=== PATIENT | female | born 1950 | race Caucasian/White ===

== ENCOUNTER 2021-05-13 01:58 | Emergency (ER) | payer MEDICARE, OTHER ==
[~2021-05-13] VITALS: Ht 165.1 cm; Wt 77.3 kg
--- NOTE | 2021-05-13 02:46 | PHYS DOC ---
General Adult EDM: Chief Complaint: SHORTNESS OF BREATH HPI: HPI: Patient is a 71 year old patient is here for shortness of breath and dry cough which began yesterday. She denies chest pain. She denies dizziness, diaphoresis. She denies sputum production, denies hemoptysis. She has chronic lower extremity swelling, which is unchanged. She has chronic osteoarthritis of both knees, which is unchanged. No calf pain. Denies syncope. Denies dyspnea exertion. 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 She neglected to tell me initially, but she has been having subjective chills and fevers at home. She is febrile on arrival on initial triage, but I personally rechecked her temperature, orally, later, and she is afebrile at 98.3 degrees. She took Tylenol around 8 PM last night. No antipyretics since that time. She denies any active chills or subjective sense of fevers or body aches at present. She is worried about she and her partner being positive for Covid (BERT SAUNDERS DO) Review of Systems: Review of Systems: Constitutional: Fevers and chills. Eyes: Denies change in visual acuity. [] HENT: Denies nasal congestion or sore throat. [] Respiratory: Dry cough. Dyspnea. Cardiovascular: Denies chest pain. Chronic bilateral lower extremity swelling, no peripheral edema. GI: Denies abdominal pain, nausea, vomiting, diarrhea. : Denies urinary symptoms. Musculoskeletal: Chronic osteoarthritis of both knees, unchanged. Integument: Denies rash. [] Neurologic: Denies headache, focal weakness or sensory changes. [] Endocrine: Denies polyuria or polydipsia. [] Lymphatic: Denies swollen glands. [] Psychiatric: Denies depression or anxiety. [] (BERT SAUNDERS DO) Heart Score: C/O Chest Pain: No Risk Factors: Risk Factors: DM, Current or recent (<one month) smoker, HTN, HLP, family history of CAD, obesity. Risk Scores: Score 0 - 3: 2.5% MACE over next 6 weeks - Discharge Home Score 4 - 6: 20.3% MACE over next 6 weeks - Admit for Clinical Observation Score 7 - 10: 72.7% MACE over next 6 weeks - Early Invasive Strategies (BERT SAUNDERS DO) Physical Exam: PE: Constitutional: Well developed, well nourished, no acute distress, non-toxic appearance. [] HENT: Normocephalic, atraumatic, oropharynx is patent and clear, mucous membranes are moist. Eyes: Sclera are clear and anicteric Neck: Normal range of motion, no tenderness, supple, no stridor. Trachea is midline. No meningismus. Cardiovascular:Heart rate regular rhythm, was 2 radial and +2 posterior tibial pulses bilaterally. Lungs & Thorax: Bilateral breath sounds clear to auscultation, no tachypnea, no rales, rhonchi or wheezes. No stridor. Abdomen: Abdomen soft, obese, nondistended, nontender to palpation, no CVA tenderness. Skin: Warm, dry, no erythema, no rash. [] Back: No tenderness, no CVA tenderness. [] Extremities: No tenderness, no cyanosis, no clubbing, ROM intact, no pitting edema. Trace bilateral, symmetric lower extremity swelling, no calf tenderness. Neurologic: Alert and oriented X 3, normal motor function, normal sensory function, no focal deficits noted. [] Psychologic: Affect normal, judgement normal, mood normal. She is pleasant cooperative. (BERT SAUNDERS DO) EKG: EKG: EKG is interpreted at 0313 Rhythm is sinus Rate is 81 bpm Hickman is normal Low voltage No STEMI (BERT SAUNDERS DO) Radiology/Procedures: Radiology/Procedures: IMAGING REPORT Signed PATIENT: BREE DEWEY ACCOUNT: [id number] : 1950 LOCATION: ER AGE: 71 SEX: F EXAM STATUS: PRE ER ORD. PHYSICIAN: BERT SAUNDERS DO REASON: cough, dyspnea PROCEDURE: PORTABLE CHEST 1V XR CHEST 1V INDICATION: cough, dyspnea COMPARISON STUDY: None. FINDINGS: Left pectoral dual chamber transvenous ICD/pacemaker. Lungs: Normal lung volume. No pulmonary mass or consolidation. The tracheobronchial tree and hilar structures are normal. Pleura: No pleural effusion or pneumothorax. Heart and Mediastinum: The cardiomediastinal silhouette is normal. The great vessels of the thorax are normal. IMPRESSION: No acute cardiopulmonary process. Electronically signed by: Ivory Holt MD (05/13/2021 3:20 AM) [facility] DICTATED and SIGNED BY: IVORY HOLT MD DATE: 05/13/21 [id number] IMAGING REPORT Signed PATIENT: BREE EDWEY ACCOUNT: [id number] : 1950 LOCATION: ER AGE: 71 SEX: F EXAM STATUS: REG ER ORD. PHYSICIAN: BERT SAUNDERS DO REASON: dyspnea, elevated D dimer;OMNI 350,100ML-NO IV ACCESS@5:30 PROCEDURE: CT ANGIOGRAPHY CHEST CTA CHEST INDICATION: dyspnea, elevated D dimer Comparison: Chest radiograph 05/13/2021. TECHNIQUE: Following the uneventful administration of intravenous contrast, 100 cc Omnipaque 350, axial CT sections were obtained through the lungs and upper abdomen. Multiplanar reconstructions and MIP images were obtained. PQRS compliance statement: One or more of the following individualized dose reduction techniques were utilized for this examination: 1. Automated exposure control 2. Adjustment of the mA and/or kV according to patient size 3. Use of iterative reconstruction technique FINDINGS: Pulmonary arteries: No evidence of pulmonary thrombolic disease Lungs and Airways: No pulmonary mass or consolidation. No abnormality of the central airways. Pleura: The pleural spaces are normal. Heart and Mediastinum: The visualized thyroid is normal in size and attenuation. No axillary or supraclavicular lymphadenopathy. No mediastinal, hilar or retrocrural lymphadenopathy. Normal cardiac size. Coronary artery athe rosclerotic disease. Normal caliber thoracic aorta. Abdomen: Limited images through the upper abdomen show no abnormality of the visualized organs. Bones and Soft Tissues: Degenerative changes of the spine. IMPRESSION: 1. No evidence of pulmonary thromboembolic disease. 2. No pulmonary mass or consolidation Electronically signed by: Ivory Holt MD (05/13/2021 6:48 AM) [facility] DICTATED and SIGNED BY: IVORY HOLT MD DATE: 05/13/21 [id number] (BERT SAUNDERS DO) Course & Med Decision Making: Course & Med Decision Making Pertinent Labs and Imaging studies reviewed. (See chart for details) The patient is given IV and p.o. potassium replacement. She is given p.o. magnesium replacement. IV fluid bolus given with potassium. Chest x-ray and CT angiogram are negative for any acute process, no PE. She is resting comfortably. Again I personally checked her oral temperature, noted at 98.3. She is not tachycardic. She manifests no evidence of hypoxia or respiratory distress. She is not taking any potassium wasting medications. She reports that she has been eating and drinking well. She not aware of any previous history of hypokalemia. She has not yet provided a urine sample. I do recommend a UA with culture, given that she had a fever. However she continues to adamantly deny any abdominal pain or urinary symptoms. She does have a dry cough. Symptoms just began yesterday, rapid antigen test is negative, but I did express that she needs to go home, self isolate and await her Covid PCR test. I told her that she may require repeat testing in the next 3 to 5 days, if symptoms should persist. Home care instructions for fever are given. She is an appointment later today with her primary care physician, I recommend she discuss this further at that time. Her urinalysis has been sent to the lab but is taking quite a while to result, this the result of that is pending. I have also ordered a repeat potassium level to assess if there is improvement after IV and oral potassium replacement here. I am transferring care to Dr. Lewis to follow-up on urinalysis results. He will also follow-up on repeat potassium level. Patient is aware of this, she is comfortable with the plan for discharge home pending these result. (BERT SAUNDERS DO) Course & Med Decision Making I assumed care of patient at tail end of off going physician to shift. I reviewed entirety of ER work-up and patient pending urine prior to discharge that was ultimately negative. Packet and plan of care already discussed between patient and off [facility] physician (GEOFFREY LEWIS DO) Kelly Disclaimer: Kelly Disclaimer: This electronic medical record was generated, in whole or in part, using a voice recognition dictation system. (BERT SAUNDERS DO) Departure Departure Impression: Primary Impression: Dyspnea Additional Impressions: History of fever Cough Hypokalemia Hypomagnesemia Disposition: HOME / SELF CARE / HOMELESS Condition: STABLE Patient Instructions: Fever of Unknown Origin, Fever, Adult, Hypokalemia, Shortness of Breath Additional Instructions: Return to the ER for chest pain, more severe shortness of breath, coughing up blood, weakness, abdominal pain, uncontrolled vomiting, if you are acutely injured or for any other concerns. Take the medications as directed. Stay well-hydrated. You may take [id number] Tylenol or ibuprofen for fever. You may wish to have a repeat Covid swab in the next 3 to 5 days, should your fe haley and cough symptoms persist, as you may still have Covid infection, and initial rapid antigen testing is less accurate early in the course of illness. The same would apply for any close household contacts. Regarding your low potassium level, take the medications as directed, follow-up with your doctor for further evaluation treatment and monitoring. Scripts Magnesium Oxide (MAGNESIUM OXIDE) 400 Mg Tablet 1 TAB PO DAILY, #30 TAB 0 Refills Prov: BERT SAUNDERS DO 05/13/21 Potassium Chloride (POTASSIUM CHLORIDE ) 20 Meq Tablet.er 20 MEQ PO DAILY for SUPPLEMENT, #30 TAB.SR Prov: BERT SAUNDERS DO 05/13/21 BERT SAUNDERS DO May 13, 2021 02:46 GEOFFREY LEWIS DO May 13, 2021 10:50
--- NOTE | 2021-05-13 03:14 | EKG ---
[facility] [address] [place] [address] Test Date: 2021-05-13 Test Time: 03:12:02 Pat Name: BREE DEWEY Department: Room: Gender: F Director College: : 1950 Requested By: BERT SAUNDERS Order Number: [id number] Reading MD: Measurements Intervals [place] Rate: 81 P: 90 MO: 192 QRS: 15 QRSD: 86 T: -72 QT: 366 QTc: 426 Interpretive Statements SINUS RHYTHM LOW LIMB LEAD VOLTAGE QRS(T) CONTOUR ABNORMALITY CONSIDER ANTEROSEPTAL MYOCARDIAL DAMAGE T ABNORMALITY IN ANTEROLATERAL LEADS INFEROLATERAL LEADS ABNORMAL ECG RI6.02 No previous ECG available for comparison
--- NOTE | 2021-05-13 03:22 | RAD ---
XR CHEST 1V INDICATION: cough, dyspnea COMPARISON STUDY: None. FINDINGS: Left pectoral dual chamber transvenous ICD/pacemaker. Lungs: Normal lung volume. No pulmonary mass or consolidation. The tracheobronchial tree and hilar st ructures are normal. Pleura: No pleural effusion or pneumothorax. Heart and Mediastinum: The cardiomediastinal silhouette is normal. The great vessels of the thorax ar e normal. IMPRESSION: No acute cardiopulmonary process. Electronically signed by: Brant Holt MD (05/13/2021 3:20 AM) [facility]
[2021-05-13 04:02] LABS: BASO % 0 % (0-3); EOS % 0 % (0-3); HEMATOCRIT 31.9 % (36.0-47.0); HEMOGLOBIN 10.6 g/dL (12.0-15.5); LYMPH # 0.9 x10^3/uL (1.0-4.8); LYMPH % 4 % (24-48); MEAN CORPUSCULAR HEMOGLOBIN 30 pg (25-35); MEAN CORPUSCULAR HGB CONC 33 g/dL (31-37); MEAN CORPUSCULAR VOLUME 90 fL (79-100); MONO # 0.6 x10^3/uL (0.0-1.1); MONO % 3 % (0-9); NEUT # 18.5 x10^3/uL (1.8-7.7); NEUT % 92 % (31-73); PLATELET COUNT 261 x10^3/uL (140-400); RED BLOOD COUNT 3.56 x10^6/uL (3.50-5.40); RED CELL DISTRIBUTION WIDTH 12.5 % (11.5-14.5); WHITE BLOOD COUNT 20.1 x10^3/uL (4.0-11.0)
[2021-05-13 04:15] LABS: INFLUENZA A PATIENT NEGATIVE (NEGATIVE); INFLUENZA B PATIENT NEGATIVE (NEGATIVE)
[2021-05-13 04:19] LABS: ALBUMIN 2.9 g/dL (3.4-5.0); ALBUMIN/GLOBULIN RATIO 0.6 (1.0-1.7); CALCIUM 8.7 mg/dL (8.5-10.1); CREATININE 0.8 mg/dL (0.6-1.0); GFR 70.7; TOTAL BILIRUBIN 0.7 mg/dL (0.2-1.0); TOTAL PROTEIN 7.4 g/dL (6.4-8.2)
[2021-05-13 04:24] LABS: POTASSIUM 2.7 mmol/L (3.5-5.1)
[2021-05-13] MEDS ORDERED: POTASSIUM CHLORIDE 20MEQ 100 ML IV ONE (04:30)
[2021-05-13] MEDS ORDERED: POTASSIUM CHLORIDE 20 MEQ TABLET.ER. PO ONE (04:30)
[2021-05-13] MEDS ORDERED: IV NORMAL SALINE 500ML BAG 500 ML IV ONE (04:45)
[2021-05-13] MEDS ORDERED: MAGNESIUM OXIDE 400 MG TABLET PO ONE (04:45)
[2021-05-13 04:48] LABS: % BANDS 9 % (0-9); % EOS 1 % (0-5); % LYMPHS 5 % (24-48); % METAS 1 % (0-0); % MONOS 3 % (0-10); % SEGS 81 % (35-66); PLT ESTIMATE ADEQUATE (ADEQUATE); TOXIC GRANULATION SLIGHT
[2021-05-13] MEDS: POTASSIUM CHLORIDE 10MEQ 100 ML IV SCH ×2 (05:07→06:19)
[2021-05-13] MEDS ORDERED: CONTRAST GIVEN. MC PRN (05:15)
[2021-05-13] MEDS ORDERED: IOHEXOL 350 MG/ML 100 ML VIAL. IV ONE (05:15)
--- NOTE | 2021-05-13 06:51 | RAD ---
CTA CHEST INDICATION: dyspnea, elevated D dimer Comparison: Chest radiograph 05/13/2021. TECHNIQUE: Following the uneventful administration of intravenous contrast, 100 cc Omnipaque 350, axi al CT sections were obtained through the lungs and upper abdomen. Multiplanar reconstructions and MIP images were obtained. PQRS compliance statement: One or more of the following individualized dose reduction techniques were utilized for this examinat ion: 1. Automated exposure control 2. Adjustment of the mA and/or kV according to patient size 3. Use of iterative reconstruction technique FINDINGS: Pulmonary arteries: No evidence of pulmonary thrombolic disease Lungs and Airways: No pulmonary mass or consolidation. No abnormality of the central airways. Pleura: The pleural spaces are normal. Heart and Mediastinum: The visualized thyroid is normal in size and attenuation. No axillary or supra clavicular lymphadenopathy. No mediastinal, hilar or retrocrural lymphadenopathy. Normal cardiac size . Coronary artery atherosclerotic disease. Normal caliber thoracic aorta. Abdomen: Limited images through the upper abdomen show no abnormality of the visualized organs. Bones and Soft Tissues: Degenerative changes of the spine. IMPRESSION: 1. No evidence of pulmonary thromboembolic disease. 2. No pulmonary mass or consolidation Electronically signed by: Brant Holt MD (05/13/2021 6:48 AM) [facility]
[2021-05-13] MEDS ORDERED: POTA20TA4 PO (07:42)
[2021-05-13 08:04] LABS: BILIRUBIN,URINE NEGATIVE (NEG); CLARITY,URINE CLEAR; COLOR,URINE YELLOW; NITRITE,URINE NEGATIVE (NEG); PH,URINE 6.5 (<5.0-8.0); PROTEIN,URINE NEGATIVE (NEG-TRACE); UROBILINOGEN,URINE 0.2 mg/dL (0.2 mg/dL)
[2021-05-13] MEDS ORDERED: MAGN400T48 PO (08:10)
[2021-05-13 08:40] LABS: BACTERIA,URINE 0 /HPF (0-FEW); RBC,URINE 0 /HPF (0-2); WBC,URINE 0 /HPF (0-4)
[2021-05-13 09:00] VITALS: BP 143/67
--- NOTE | 2021-05-13 16:05 | NUR ---
IP: Informed pt of negative covid test. Pt verbalized understanding.
== END 2021-05-13 09:40 | disposition home or self-care (01) ==
LOC: ER 01:58
DX: R05.9 Cough, unspecified (principal); Z20.822 Contact with and (suspected) exposure to COVID-19; R06.02 Shortness of breath; E87.6 Hypokalemia; E83.42 Hypomagnesemia
CPT/HCPCS: 36415; 71045; 71275; 80053; 81001; 83735; 83880; 84484; 85007; 85025; 85379; 87426; 87804; 93005; 96365; 99285; J3480; J7040; Q9967; U0003; U0005